=== PATIENT | female | born 1960 | race Caucasian/White ===

== ENCOUNTER → 2024-07-15 | Outpatient (CLI) | payer OTHER, SELFPAY ==
--- NOTE | 2024-07-15 | XR_ITS ---
Examination: Breast ultrasound, unilateral, right complete Date and time of exam: July 07, 2024 0736 hrs. Indications: Right breast discharge beginning one month ago, family history breast cancer Technique: Real-time frazier scale ultrasonographic imaging performed right breast including all 4 quadrants as well as nipple retroareolar and axillary region. Findings: No cystic or solid mass 3.1 cm right axillary lymph node Impression: BI-RADS Category 0: Incomplete: Need additional imaging evaluation Recommend diagnostic mammography follow-up
--- NOTE | 2024-07-15 | XR_ITS ---
Examination: Skull series 4 views Technique: Mina right lateral knee left lateral skull series 4 views Exam date and time: July 21, 2024 0818 hrs. Indications: Palpable mass right frontal bone 3 months Findings: Radiolucent lesion with sclerotic borders in the right frontal bone is depicted, measuring 12 mm No cranial vault fracture Normal sella turcica Impression: Recommend CT brain without contrast follow-up including bone density settings to assess sclerotic 12 mm right frontal bone lesion
[2024-07-15 09:47] LABS: Follicle Stimulating Hormone 63.04 mIU/mL (See Note)
[2024-07-15 09:50] LABS: Free T4 (Free Thyroxine) 1.24 ng/dL (0.89-1.76); Thyroid Stimulating Hormone 3.25 uIU/mL (0.55-4.78)
[2024-07-19 06:38] LABS: Sex Hormone Binding Globulin* 73 nmol/L (14-73)
== END | disposition home or self-care (01) ==
LOC: CDIM 06:57
PROVIDERS: PCP Nurse Practitioner Family; Referring Provider Nurse Practitioner Family; Visit Provider Nurse Practitioner Family
DX: R92.8 Other abnormal and inconclusive findings on diagnostic imaging of breast (principal); M89.8X8 Other specified disorders of bone, other site; R68.89 Other general symptoms and signs
CPT/HCPCS: 36415; 70260; 76641; 82533; 82670; 82672; 83001; 83002; 84144; 84270; 84439; 84443

== ENCOUNTER → 2024-07-19 | Outpatient (CLI) | payer OTHER, SELFPAY ==
--- NOTE | 2024-07-19 12:32 | XR_ITS ---
Examination: Diagnostic digital mammography, bilateral Computer aided detection 3-D breast Tomosynthesis, bilateral Date and time of exam: 07/19/2024, 12:35 PM Comparisons: February 2018 through September 2023 Indications:Right body nipple discharge Technique: Nonmagnified MLO, CC views of the breasts to been obtained, reconstructed from 3-D Tomosynthesis images. R2 computer aided detection program utilized for evaluation of suspicious masses and/or abnormal calcifications. 3-D Tomosynthesis images obtained. Findings: There are scattered areas of fibroglandular density. Dilated right outer breast/retroareolar ducts. Otherwise, no evidence of abnormal masses or suspicious calcifications. Impression: Dilated right outer breast/retroareolar ducts. Further evaluation with spot compression views of the right retroareolar and outer breast and ultrasound evaluation of the right breast. BI-RADS category 0: Incomplete assessment; need additional imaging evaluation
== END | disposition home or self-care (01) ==
LOC: CDIM 12:09
PROVIDERS: Referring Provider Nurse Practitioner Family; Visit Provider Nurse Practitioner Family
DX: R92.8 Other abnormal and inconclusive findings on diagnostic imaging of breast (principal)
CPT/HCPCS: 77062; 77066; G0279

== ENCOUNTER → 2024-07-25 | Outpatient (CLI) | payer OTHER, SELFPAY ==
--- NOTE | 2024-07-25 13:54 | XR_ITS ---
Examination: CT brain head without contrast. 2-D sagittal coronal reconstructions Date and time of exam:July 25, 2024 1402 hours INDICATIONS: Right frontal bone lesion 12 mm on skull series July 15, 2024 CTDI: vol (mGy):48.3 DLP: (mGycm):972 Technique: Multiple CT axial sections of the brain have been obtained, 5 mm slice thickness. Contrast has not been administered. 2-D sagittal, coronal reconstructions have been obtained Low dose protocols were performed. One or more of the following dose reduction techniques were used; automated exposure control, adjustment of the mA and/or KV according to patient size, use of iterative reconstruction technique. Findings: No significant ventricular enlargement. Intra-axial or extra-axial hemorrhage density is not seen. No mass effect or midline shift Basal cisterns are not remarkable. Fourth ventricle is midline. Cranial vault intact. Probable pacchionian granulation right frontal bone Impression: Negative for acute hemorrhage, mass effect or midline shift
== END | disposition home or self-care (01) ==
LOC: CCTX 13:43
PROVIDERS: PCP Nurse Practitioner Family; Referring Provider Nurse Practitioner Family; Visit Provider Nurse Practitioner Family
DX: R22.0 Localized swelling, mass and lump, head (principal)
CPT/HCPCS: 70450

== ENCOUNTER → 2024-08-02 | Outpatient (CLI) | payer OTHER, SELFPAY ==
--- NOTE | 2024-08-02 14:10 | XR_ITS ---
Examination: Breast ultrasound, unilateral, right complete Date and time of exam: August 02, 2024 1425 hours INDICATIONS: Burning sensation right breast 18 days with nipple discharge, family history breast cancer Technique: Real-time frazier scale ultrasonographic imaging performed right breast including all 4 quadrants as well as nipple retroareolar and axillary region. Findings: Sonographic images right breast 10:00 cyst 2 x 3 mm No solid nodules Dilated ducts retroareolar region right breast IMPRESSION: BI-RADS Category 2: Benign findings
--- NOTE | 2024-08-02 14:31 | XR_ITS ---
Examination: Diagnostic digital mammography, unilateral, right Computer aided detection 3-D breast Tomosynthesis, unilateral Date and time of exam: August 02, 2024 1445 hours INDICATIONS: Mammogram July 19, 2024 dilated right outer breast retroareolar ducts Technique: Nonmagnified MLO, CC views of the right breast have been obtained, reconstructed from 3-D Tomosynthesis images. R2 computer aided detection program utilized for evaluation of suspicious masses and/or abnormal calcifications. 3-D Tomosynthesis images obtained. Findings: Scattered areas of fibroglandular density. Dilated retroareolar ducts Impression: BI-RADS category 2: Benign findings Recommend yearly follow-up mammography
== END | disposition home or self-care (01) ==
PROVIDERS: PCP Nurse Practitioner Family; Referring Provider Nurse Practitioner Family; Visit Provider Nurse Practitioner Family
DX: R92.321 Mammographic fibroglandular density, right breast (principal); Z80.3 Family history of malignant neoplasm of breast
CPT/HCPCS: 76641; 77061; 77065; G0279

== ENCOUNTER 2024-08-06 09:40 | Emergency (ER) | payer OTHER, SELFPAY ==
[2024-08-06 09:49] VITALS: BP 141/84; PULSE 70; RESP 16; TEMP 36.7; O2SAT 97; BMI 35.0
--- NOTE | 2024-08-06 10:02 | EDNOTE_ITS ---
ED Skin Abcess FB-RME/HPI General Chief complaint: Skin/Abscess/Foreign Body Stated complaint: BURNING IN RIGHT BREAST X 1 WK AFTER MAMMOGRAM Time Seen by Provider: 08/06/24 09:48 Source: patient Arrival date/time: 08/06/24 09:40 63-year-old female with normal medical history presents to the emergency room with a chief complaint of burning and discharge in her right breast x 1 week. Patient states she recently had a mammogram. Mode of arrival: ambulatory Limitations: no limitations Related Data Home Medications ?Medication ?Instructions ?Recorded ?Confirmed omeprazole 20 mg capsule,delayed 20 mg PO QDAY ##0 07/2206/03/21 release naproxen sodium 220 mg tablet 220 mg PO BID PRN Pain 0 08/17/20 06/03/21 (Aleve) Previous Rx's ?Medication ?Instructions ?Recorded tramadol 50 mg tablet 50 mg PO Q6H PRN pain #20 ta bs 10/27/22 amoxicillin 875 mg-potassium 1 tab PO BID 7 days #14 t abs 08/06/24 clavulanate 125 mg tablet Allergies Allergy/AdvReac Type Severity Reaction Status Date / Time No Known Allergies Allergy Verified 08/06/24 09:44 Review of Systems Review of Systems Systems Reviewed: All systems reviewed, normal except as documented Constitutional Constitutional: Reports system reviewed and no additional complaints, except as documented, Denies fatigue, Denies fever(s), Denies headache(s) and Denies weakness Eyes Eyes: Reports system reviewed and no additional complaints, except as documented, Denies blurry vision and Denies change in vision ENT Ears, Nose, Mouth, and Throat: Reports system reviewed and no additional complaints, except as documented, Denies otalgia, Denies headache(s), Denies nasal congestion, Denies throat swelling and Denies vertigo Cardiovascular Cardiovascular: Reports system reviewed and no additional complaints, except as documented, Denies chest pain, Denies dyspnea and Denies dyspnea on exertion Respiratory Respiratory: Reports system reviewed and no additional complaints, except as documented, Denies chest congestion, Denies cough, Denies dyspnea, Denies dyspnea on exertion and Denies wheezing Gastrointestinal Gastrointestinal: Reports system reviewed and no additional complaints, except as documented, Denies abdominal pain, Denies cramping, Denies nausea and Denies vomiting Genitourinary Genitourinary: Reports system reviewed and no additional complaints, except as documented and Reports nipple discharge Musculoskeletal Musculoskeletal: Reports system reviewed and no additional complaints, except as documented and Denies back pain Integumentary/Breasts Skin/Breast: Reports system reviewed and no additional complaints, except as documented, Reports erythema, Denies wounds, Reports breast skin changes and Reports nipple discharge Neurologic Neurologic: Reports system reviewed and no additional complaints, except as documented, Denies confusion, Denies headache(s), Denies lack of coordination, Denies vertigo and Denies weakness Psychiatric Psychiatric: Reports system reviewed and no additional complaints, except as documented, Denies anxiety, Denies confusion, Denies depression, Denies paranoia, Denies suicidal ideation and Denies tactile hallucinations Endocrine Endocrine: Reports system reviewed and no additional complaints, except as documented and Denies fatigue Hematologic/Lymphatic Hematologic/Lymphatic: Reports system reviewed and no additional complaints, except as documented and Denies lymphadenopathy Allergic/Immunologic Allergic/Immunologic: Reports system reviewed and no additional complaints, except as documented, Denies throat swelling, Denies urticaria and Denies wheezing ED Exam General Limitations: Present no limitations General appearance: Present alert and in no apparent distress Head Head exam: Present atraumatic Eye Eye exam: Present normal appearance, PERRL and EOMI ENT ENT exam: Present normal exam, normal oropharynx and mucous membranes moist Neck Neck exam: Present normal inspection, full ROM and trachea midline Chest Chest inspection: Present normal inspection and symmetric chest wall rise Expanded Chest Exam Breast: right: erythema, tenderness and nipple discharge Respiratory Respiratory exam: Present normal lung sounds bilaterally Cardiovascular Cardiovascular exam: Present regular rate, normal rhythm and normal heart sounds Abdominal Exam Abdominal exam: Present soft and normal bowel sounds Extremities Exam Extremities exam: Present normal inspection and full ROM Back Exam Back exam: Present normal inspection and full ROM Neurological Exam Neurological exam: Present alert, oriented X3 and CN II-XII intact Psychiatric Psychiatric exam: Present normal affect and normal mood Skin Skin exam: Present warm, dry, intact and normal color Course Quality Measures none Vital Signs Vital signs: Vital Signs Temperature 98.0 F 08/06/24 09:49 Pulse Rate 70 08/06/24 09:49 Respiratory Rate 16 08/06/24 09:49 Blood Pressure 141/84 H 08/06/24 09:49 Pulse Oximetry (%) 97 08/06/24 09:49 Oxygen Delivery Method Room Air 08/06/24 09:49 O2 saturation 97% within normal limits Skin / Abscess / Foreign Body MDM Narrative MDM Narrative:: 63-year-old female with normal medical history presents to the emergency room with a chief complaint of burning and discharge in her right breast x 1 week. Patient states she recently had a mammogram. Patient is hemodynamically stable and in no apparent distress. She is afebrile not tachycardic and not tachypneic Physical examination shows swelling and tenderness to the right breast. There is some discharge coming out of the right nipple. Patient recently had a mammogram done a week ago that showed benign findings. Patient had ultrasound as well that showed a small benign cyst. All copies of her recent imaging were given to her patient was discharged with antibiotics for mastitis Patient was discharged and educated to follow-up with primary care provider in the next 24 to 48 hours and return to the emergency room for any evidence of worsening signs or symptoms Patient data External records reviewed:: [facility] previous records Clinical information provided by:: patient Social determinants that could affect healthcare access:: none Patient has the following chronic illnesses:: No chronic illness How is presenting disease/condition affected by chronic disease/condition?: no chronic disease Evaluation data The following diagnostics were reviewed and interpreted by me:: lab results and radiology exam(s) Lab and/or radiology exams considered but not ordered:: Labs and radiology exams considered and ordered Interpretation Summary: N/A Medications / Prescriptions Medications or Prescriptions considered but not ordered:: Rx given Medication administrations:: Rx given Consultations Consultation(s) initiated? (list below): No Diagnosis Skin/Abscess Differential Diagnosis: abscess of skin or subcutaneous tissue, cellulitis and other (Mastitis) Most likely diagnosis given after review of the tests above:: Mastitis Admission Indicated Admission indicated?: not indicated Admission Request Was there a request for admission?: No Disposition Plan Disposition Plan: Discharge Discharge Attestation Discharge Attestation: The patient and all family members were given an opportunity to ask questions and understood the discharge instructions. Discharge instructions specifically effects, indications for sooner follow up or return to the emergency department, and the expected course of current diagnosis. Patient condition: Stable Discharge Plan Plan Patient Disposition: HOME (Self Care) Disposition Comment: Stable Prescriptions/Referrals Prescriptions/Med Rec: New amoxicillin-pot clavulanate 875-125 mg tablet 1 tab PO BID 7 Days Qty: 14 0RF No Action omeprazole 20 MG capsule,delayed release(DR/EC) 20 mg PO QDAY Qty: 0 naproxen sodium [Aleve] 220 mg Tablet 220 mg PO BID PRN (Reason: Pain) tramadol 50 mg tablet 50 mg PO Q6H PRN (Reason: pain) Qty: 20 0RF Problem List Clinical Impression: Mastitis Patient/Caregiver Discharge Instructions Education Materials: ED Mastitis Additional Instructions: Please follow-up with your primary care provider in the next 24 to 48 hours. I attached a copy of your mammogram results. The radiologist recommends a yearly follow-up. Antibiotics are sent to your pharmacy please pick them up and take them as indicated. For any evidence of worsening signs or symptoms return to the emergency room immediately Print Language: Welsh Stand Alone Forms: Viviana Award Info., Patient Portal Info Letter PA/[employer] Supervising Physician PA/[employer] Supervising Physician: Dr. Van
--- NOTE | 2024-08-06 11:49 | PC.NURSE ---
Addendum entered by Ally Ross RN 08/06/24 12:10: RN CALLED PT FROM [facility] AGAIN; NO ANSWER AT THIS TIME. Original Note: RN CALLED PT FROM ED [facility]; NO ANSWER AT THIS TIME.
== END 2024-08-06 12:13 | disposition home or self-care (01) ==
LOC: SERX 10:11
PROVIDERS: Emergency Provider Emergency Medicine; PCP Nurse Practitioner Family
DX: N61.0 Mastitis without abscess (principal)
CPT/HCPCS: 99281

== ENCOUNTER → 2024-09-06 | Outpatient (CLI) | payer OTHER, SELFPAY ==
--- NOTE | 2024-09-06 14:04 | XR_ITS ---
Examination: Breast ultrasound, unilateral, right Date and time of exam: September 06, 2024 1422 hours INDICATIONS: Bloody nipple discharge 3 months Technique: Real-time frazier scale ultrasonographic imaging performed right breast including all 4 quadrants as well as nipple retroareolar and axillary region. Findings: 10:00 cyst 2 x 3 mm No solid nodules Dilated ducts in the retroareolar region with internal echoes IMPRESSION: Dilated ducts retroareolar with internal echoes, recommend ductogram follow-up
== END | disposition home or self-care (01) ==
LOC: CDIM 13:54
PROVIDERS: PCP Nurse Practitioner Family; Referring Provider Nurse Practitioner Family; Visit Provider Nurse Practitioner Family
DX: N64.89 Other specified disorders of breast (principal)
CPT/HCPCS: 76641

== ENCOUNTER → 2024-10-08 | Outpatient (CLI) | payer OTHER, SELFPAY ==
--- NOTE | 2024-10-08 09:00 | XR_ITS ---
Examination: Right breast ductogram Right CC view mammogram x2 Date and time: October 08, 2024 0939 hours INDICATIONS: Bloody discharge episodes beginning 4 months ago TECHNIQUE AND FINDINGS: Informed consent provided. Timeout performed. Skin prepped over the nipple region right breast Cannulation of the duct in the breast with dilated ducts retroareolar filling No filling defects in the duct noted No breast mass IMPRESSION: BI-RADS Category 2: Benign findings
== END | disposition home or self-care (01) ==
LOC: CDIM 08:00
PROVIDERS: Referring Provider Nurse Practitioner Family; Visit Provider Nurse Practitioner Family
DX: N61.1 Abscess of the breast and nipple (principal)
CPT/HCPCS: 77053; Q9967

== ENCOUNTER 2024-11-19 18:42 | Emergency (ER) | payer OTHER, SELFPAY ==
[2024-11-19 18:44] VITALS: BMI 34.3
[2024-11-19 19:10] VITALS: BP 146/82; PULSE 75; RESP 18; TEMP 36.8; O2SAT 97
--- NOTE | 2024-11-19 19:37 | XR_ITS ---
Examination: Duplex scan of the lower extremity, unilateral right the Date and time of exam: November 20, 1999 2510 0 6:00 PM INDICATIONS: Right leg pain beginning 4 days ago Technique: Duplex scan of the extremity veins using B-mode/grayscale imaging and Doppler spectral analysis and color flow Attention is directed to internal echogenicity, compression and augmentation involving these veins, color flow assessment, spectral analysis Findings: Major deep venous structures in the extremity demonstrate normal course and caliber. There is no evidence of deep vein thrombosis. Normal color flow and spectral analysis Impression: Negative for DVT..
--- NOTE | 2024-11-19 19:37 | XR_ITS ---
Examination: Transvaginal ultrasound of the pelvis, complete Technique: Transvaginal sonographic images pelvis performed using frazier scale imaging Exam date and time: November 19, 2024 10:14 PM INDICATIONS: Vaginal bleeding and cramping beginning 4 days ago FINDINGS: Uterus 8.4 cm endometrial stripe 1.2 cm Moderate fluid in the endometrium 13 x 5 x 8 mm Multiple calcifications in the endometrium Right ovary 2.2 cm arterial flow Appropriate obscured by bowel gas IMPRESSION: No discrete uterine mass Endometrial stripe is abnormally thickened measuring up to 13 mm, differential would include endometrial hyperplasia, early malignant neoplasm of the endometrium Recommend elective MRI pelvis follow-up pre and postcontrast
--- NOTE | 2024-11-19 19:38 | EDNOTE_ITS ---
ED Extremity Problem RME/HPI General Chief complaint: Extremity Injury, Lower Stated complaint: R) LEG PAIN 12/15, VAGINAL BLEEDING Time Seen by Provider: 11/19/24 19:37 Arrival date/time: 11/19/24 18:42 64F with history of sciatica presents to ED with RLE pain w/o fall/trauma. Patient states this doesn't feel like her normal sciatica pain. Separately, patient has had some pelvic pain and vaginal bleeding. She knows she has a thickened endometrium, but doesn't know why. She's had biopsies before of it. Limitations: no limitations Related Data Home Medications ?Medication ?Instructions ?Recorded ?Confirmed omeprazole 20 mg capsule,delayed 20 mg PO QDAY ##0 07/2206/03/21 release naproxen sodium 220 mg tablet 220 mg PO BID PRN Pain 0 08/17/20 06/03/21 (Aleve) Previous Rx's ?Medication ?Instructions ?Recorded tramadol 50 mg tablet 50 mg PO Q6H PRN pain #20 ta bs 10/27/22 Allergies Allergy/AdvReac Type Severity Reaction Status Date / Time No Known Allergies Allergy Verified 11/19/24 18:46 Review of Systems Review of Systems Systems Reviewed: All systems reviewed, normal except as documented Constitutional Constitutional: Reports system reviewed and no additional complaints, except as documented, Denies fever(s) and Denies headache(s) ENT Ears, Nose, Mouth, and Throat: Denies disequilibrium and Denies headache(s) Cardiovascular Cardiovascular: Reports system reviewed and no additional complaints, except as documented, Denies chest pain and Denies dyspnea Respiratory Respiratory: Reports system reviewed and no additional complaints, except as documented, Denies cough and Denies dyspnea Gastrointestinal Gastrointestinal: Reports system reviewed and no additional complaints, except as documented, Denies abdominal pain, Denies nausea and Denies vomiting Genitourinary Genitourinary: Reports as per HPI and Reports abnormal vaginal bleeding Musculoskeletal Musculoskeletal: Reports as per HPI, Reports arthralgias and Reports radiating pain into limb Neurologic Neurologic: Reports system reviewed and no additional complaints, except as documented, Denies confusion, Denies disequilibrium and Denies headache(s) Psychiatric Psychiatric: Denies confusion Past Medical History Past Medical History NEUROLOGIC: Negative Neurological Disorders or Seizures CARDIAC: Positive Cardiac Disorders and Heart Murmur; Negative Congestive Heart Failure RESPIRATORY: Positive Sleep Apnea; Negative Chronic Obstructive Pulmonary Disease (COPD) or Asthma GASTROINTESTINAL: Positive Gastrointestinal Disorders, Gall Bladder Disease and Gastroesophageal Reflux Disease GENITOURINARY: Positive Genitourinary Disorders and Kidney Stones (kidney stones removal); Negative Renal Disease REPRODUCTIVE: Positive Previous Pregnancies (x3) MUSCULOSKELETAL: Positive Musculoskeletal Disorders and Arthritis ENT: Negative Blind ENDOCRINE: Negative Diabetes Mellitus Type 1 or Diabetes Mellitus Type 2 HEMATOLOGIC: Negative Blood Disorders or Sickle Cell Disease OTHER HISTORY: Positive Shingles (child); Negative Autoimmune Disease, Blood Transfusions, Blood Transfusion Reaction, Anesthesia Reactions, Chicken Pox, Measles, Mumps or Cancer Family History FAMILY HISTORY: Positive Family Respiratory Disorders (mother, father and brother-COPD, father-HTN), Family Cardiac Disorders (mother-CHF), Family Cancer (mother, father and brother-lung cancer, father-bladder cancer) and Family Surgery (father); Negative Family Psychiatric Problems, Family Gastrointestinal Problems or Family Anesthesia Reaction Surgical History SURGICAL: Positive Tubal Ligation and Section Social History SMOKING STATUS: Former smoker ED Exam General Limitations: Present no limitations General appearance: Present alert and in no apparent distress Head Head exam: Present atraumatic Eye Eye exam: Present normal appearance, PERRL and EOMI ENT ENT exam: Present normal exam, normal oropharynx and mucous membranes moist Neck Neck exam: Present normal inspection, full ROM and trachea midline Chest Chest inspection: Present normal inspection and symmetric chest wall rise Respiratory Respiratory exam: Present normal lung sounds bilaterally Cardiovascular Cardiovascular exam: Present regular rate, normal rhythm and normal heart sounds Abdominal Exam Abdominal exam: Present soft and normal bowel sounds Extremities Exam Extremities exam: Present normal inspection and full ROM Back Exam Back exam: Present normal inspection and full ROM Neurological Exam Neurological exam: Present alert, oriented X3 and CN II-XII intact Psychiatric Psychiatric exam: Present normal affect and normal mood Skin Skin exam: Present warm, dry, intact and normal color Course Quality Measures none Orders Category Date Time Status US transvaginal Stat Exams 11/19/24 19:37 Completed US venous doppler LE RT Stat Exams 11/19/24 19:37 Completed Ketorolac Inj [Toradol Inj] Med 11/19/24 23:08 Discontinued 60 mg IM X1 ONE Vital Signs Vital signs: Vital Signs Temperature 98.2 F 11/19/24 19:10 Pulse Rate 75 11/19/24 19:10 Respiratory Rate 18 11/19/24 19:10 Blood Pressure 146/82 H 11/19/24 19:10 Pulse Oximetry (%) 97 11/19/24 19:10 Oxygen Delivery Method Room Air 11/19/24 19:10 O2 at 97% on RA and WNLs Extremity Problem MDM Narrative MDM Narrative:: 64F with history of sciatica presents to ED with RLE pain w/o fall/trauma. Patient states this doesn't feel like her normal sciatica pain. Separately, patient has had some pelvic pain and vaginal bleeding. She knows she has a thickened endometrium, but doesn't know why. She's had biopsies before of it. Physical exam no gross RLE swelling. Gait normal. Patient is afebrile, calm, and alert. US RLE no DVT. US pelvic thickened endometrium. Meds and memorial counselor given. Patient data External records reviewed:: [facility] previous records Clinical information provided by:: patient Social determinants that could affect healthcare access:: none Patient has the following chronic illnesses:: none How is presenting disease/condition affected by chronic disease/condition?: no chronic disease Evaluation data The following diagnostics were reviewed and interpreted by me:: radiology exam(s) Lab and/or radiology exams considered but not ordered:: ordered Interpretation Summary: above Medications / Prescriptions Medications or Prescriptions considered but not ordered:: ordered Medication administrations:: Medication Administration History Discontinued Medications Ketorolac Tromethamine (Ketorolac Inj 60 Mg/2 Ml Vial) 60 mg IM X1 ONE Stop: 11/19/24 23:09 Last Admin: 11/19/24 23:22 Dose: 60 mg Documented By: CVL above Consultations Consultation(s) initiated? (list below): No Diagnosis Extremity Problem Differential Diagnosis: herpes zoster, gout, cellulitis, superficial thrombophlebitis, deep venous thrombosis of upper extremity, lower extremity edema, deep vein thrombosis of lower extremity and other (vaginal bleeding, sciatica and thickened endometrium) Most likely diagnosis given after review of the tests above:: sciatica and thickened endometrium Admission Indicated Admission indicated?: not indicated Admission Request Was there a request for admission?: No Disposition Plan Disposition Plan: Discharge Discharge Attestation Discharge Attestation: The patient and all family members were given an opportunity to ask questions and understood the discharge instructions. Discharge instructions specifically effects, indications for sooner follow up or return to the emergency department, and the expected course of current diagnosis. Patient condition: Stable Discharge Plan Plan Patient Disposition: HOME (Self Care) Discharge Disposition comment: Stable Prescriptions/Referrals Prescriptions/Med Rec: No Action omeprazole 20 MG capsule,delayed release(DR/EC) 20 mg PO QDAY Qty: 0 naproxen sodium [Aleve] 220 mg Tablet 220 mg PO BID PRN (Reason: Pain) tramadol 50 mg tablet 50 mg PO Q6H PRN (Reason: pain) Qty: 20 0RF Referrals: No Primary/Family,Physician [Primary Care Provider] - In 1 week Problem List Clinical Impression: Sciatica, Endometrial thickening on ultrasound Patient/Caregiver Discharge Instructions Education Materials: ED Sciatica Additional Instructions: Please follow-up with PCP/OBYGN within 24-48 hours and return immediately if s ymptoms worsen. If problem persists, recommend outpatient PT and/or MRI follow-up. In the meantime, rest, use ice/heat, and/or compression. Print Language: Portuguese Stand Alone Forms: Patient Portal Info Letter PA/ARELI Supervising Physician MARISA/ARELI Supervising Physician: Dr. Ott
[2024-11-19] MEDS: KETOROLAC INJ 60 MG/2 ML VIAL IM (23:22)
[2024-11-19 23:44] VITALS: RESP 18
== END 2024-11-19 23:44 | disposition home or self-care (01) ==
PROVIDERS: Emergency Provider Emergency Medicine
DX: M54.31 Sciatica, right side (principal); R93.89 Abnormal findings on diagnostic imaging of other specified body structures; N93.9 Abnormal uterine and vaginal bleeding, unspecified
CPT/HCPCS: 76830; 93971; 96372; 99283; J1885

== ENCOUNTER → 2024-11-25 | Outpatient (CLI) | payer OTHER, SELFPAY ==
--- NOTE | 2024-11-25 13:58 | XR_ITS ---
Examination: Lumbar spine 3 views Technique one AP lateral coned lateral lower lumbar spine 3 views Date and time: November 25, 2024 1413 hours INDICATIONS: Low back pain several years. FINDINGS: Severe osteopenia Prominent anterior osteophytes L2-L3 Diffuse [id number] lumbar degenerative disc disease most severe L5-S1 No lumbar fracture IMPRESSION: Diffuse [id number] lumbar degenerative disc disease most severe L5-S1
== END | disposition home or self-care (01) ==
PROVIDERS: PCP Nurse Practitioner Family; Referring Provider Nurse Practitioner Family; Visit Provider Nurse Practitioner Family
DX: M51.360 Other intervertebral disc degeneration, lumbar region with discogenic back pain only (principal); M51.370 Other intervertebral disc degeneration, lumbosacral region with discogenic back pain only
CPT/HCPCS: 72100

== ENCOUNTER → 2025-01-03 | Outpatient (CLI) | payer OTHER, SELFPAY ==
--- NOTE | 2025-01-03 11:30 | XR_ITS ---
Examination: Ultrasound soft tissue extremity right groin TECHNIQUE: Grayscale sonographic images soft tissue right groin Date and time: January 03, 2025, 1117 hours INDICATIONS: Right groin pain beginning 6 months ago FINDINGS: Multiple lymph nodes in the right groin 10 x 6 mm, 13 x 5 mm, 12 x 6 mm, 8 x 5 mm IMPRESSION: Nonspecific groin lymphadenopathy
== END | disposition home or self-care (01) ==
LOC: CDIM 11:07
PROVIDERS: PCP Family Medicine; Referring Provider Nurse Practitioner Family; Visit Provider Nurse Practitioner Family
DX: R59.1 Generalized enlarged lymph nodes (principal)
CPT/HCPCS: 76882

== ENCOUNTER → 2025-02-11 | Outpatient (CLI) | payer OTHER, SELFPAY ==
--- NOTE | 2025-02-11 14:06 | XR_ITS ---
Examination: CT pelvis right hip, without contrast. 2-D sagittal reconstructions. 2-D coronal reconstructions. 3-D reconstructions. Date and time of exam: February 11, 2025, 1436 hours INDICATIONS: Right hip and groin pain beginning 1 year ago CTDI: vol (mGy): 13.8 DLP: (mGycm): 450 Technique: Multiple 1.25 mm axial sections of the pelvis right hip have been obtained. 2-D sagittal and coronal reconstructions have been obtained. 3-D reconstructions have been obtained. Low dose protocols were performed. One or more of the following dose reduction techniques were used; automated exposure control, adjustment of the mA and/or KV according to patient size, use of iterative reconstruction technique. Findings: Normal appendix. 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
== END | disposition home or self-care (01) ==
LOC: CCTX 13:50
PROVIDERS: PCP Nurse Practitioner Family; Referring Provider Nurse Practitioner Family; Visit Provider Nurse Practitioner Family
DX: M25.852 Other specified joint disorders, left hip (principal); M25.851 Other specified joint disorders, right hip
CPT/HCPCS: 73700

== ENCOUNTER → 2025-02-20 | Outpatient (CLI) | payer OTHER, SELFPAY ==
[2025-02-20 17:37] LABS: Anion Gap 7 (7-16); BUN/Creatinine Ratio 21 Ratio (12-20); Blood Urea Nitrogen 17 mg/dL (9-23); Calcium 9.1 mg/dL (8.3-10.6); Carbon Dioxide 29.2 mMol/L (20.0-31.0); Chloride 108 mMol/L (98-107); Creatinine (Component) 0.8 mg/dL (0.6-1.3); Glucose 128 mg/dL (74-106); Osmolality,Calculated 290 (275-295); Potassium 4.7 mMol/L (3.4-5.1); Sodium 144 mMol/L (136-145); eGFR > 60 See Note
== END | disposition home or self-care (01) ==
LOC: COPL 16:14
PROVIDERS: PCP Family Medicine; Referring Provider Nurse Practitioner Family; Visit Provider Nurse Practitioner Family
DX: M89.751 Major osseous defect, right pelvic region and thigh (principal)
CPT/HCPCS: 36415; 80048

== ENCOUNTER → 2025-02-21 | Outpatient (CLI) | payer OTHER, SELFPAY ==
--- NOTE | 2025-02-21 13:30 | XR_ITS ---
Examination: MRI pelvis with intravenous contrast. MRI pelvis without intravenous contrast. Date and time of exam: Abraham ESQUIVEL, 2024, 1337 hours INDICATIONS: Right pelvic osteolytic lesions 11 mm 10 mm anterior right acetabulum Technique: Multiple axial, sagittal and coronal sections of the pelvis obtained. Transverse images, TR 6020, TE 107. T1 weighted transverse images, TR 582, TE 9.5. T2-weighted sagittal images, TR 4000, TE 105. T2-weighted sagittal images, TR 4000, TE 5. Coronal images, TR 4210, TE 107. Axial and coronal images are obtained post 18 cc intravenous injection, gadolinium. Findings: Osteolytic areas in the right anterior acetabulum, in aggregate measure 20 x 10 mm These areas show irregular abnormal enhancement on the postcontrast studies Also abnormal enhancing lesion in the left femoral head 12 mm and enhancement involving the upper margin L5 No pelvic lymphadenopathy No free fluid in the pelvis Anteverted uterus with no uterine mass IMPRESSION: Osteolytic enhancing lesions in the pelvis and left hip Recommend whole-body bone scan follow-up
== END | disposition home or self-care (01) ==
LOC: SMRI 12:54
PROVIDERS: PCP Nurse Practitioner Family; Referring Provider Nurse Practitioner Family; Visit Provider Nurse Practitioner Family
DX: M89.59 Osteolysis, multiple sites (principal)
CPT/HCPCS: 72197; A9577

== ENCOUNTER → 2025-03-04 | Outpatient (CLI) | payer OTHER, SELFPAY ==
[2025-03-04 16:44] LABS: Parathyroid Hormone Intact 23.4 pg/ml (18.5-88.0)
[2025-03-04 16:53] LABS: Alanine Aminotransferase 14 U/L (10-49); Albumin, Serum 4.5 gm/dL (3.4-4.8); Albumin/Globulin Ratio 2.4 (1.2-2.2); Alkaline Phosphatase 155 U/L (46-116); Anion Gap 10 (7-16); Aspartate Amino Transferase 33 U/L (0-34); BUN/Creatinine Ratio 21 Ratio (12-20); Bilirubin,Total 0.5 mg/dL (0.3-1.2); Blood Urea Nitrogen 19 mg/dL (9-23); Calcium 9.5 mg/dL (8.3-10.6); Calcium (Corrected) 9.5 mg/dL (8.5-10.1); Carbon Dioxide 27.0 mMol/L (20.0-31.0); Chloride 107 mMol/L (98-107); Creatinine (Component) 0.9 mg/dL (0.6-1.3); Globulin 1.9 gm/dL (2.3-3.5); Glucose 111 mg/dL (74-106); Osmolality,Calculated 290 (275-295); Phosphorous 2.8 mg/dL (2.4-5.1); Potassium 4.4 mMol/L (3.4-5.1); Sodium 144 mMol/L (136-145); Total Protein 6.4 gm/dL (5.7-8.2); Uric Acid 6.1 mg/dL (3.1-7.8); eGFR > 60 See Note
== END | disposition home or self-care (01) ==
LOC: COPL 15:17
PROVIDERS: PCP Student in an Organized Health Care Education/Training Program; Referring Provider Student in an Organized Health Care Education/Training Program; Visit Provider Student in an Organized Health Care Education/Training Program
DX: M89.50 Osteolysis, unspecified site (principal)
CPT/HCPCS: 36415; 80053; 83970; 84100; 84550

== ENCOUNTER → 2025-03-11 | Outpatient (CLI) | payer OTHER, SELFPAY ==
--- NOTE | 2025-03-11 12:30 | XR_ITS ---
NUCLEAR MEDICINE WHOLE BODY BONE SCAN Date and time of exam: 03/11/2025 at 8:17 a.m. HISTORY: Osteolysis, unspecified site. History of right hip pain and hurting after fall/trauma 2 months ago COMPARISON: Pelvic MRI 02/21/2025, right hip CT 02/11/2025. CT head 07/25/2024. TECHNIQUE: Following the intravenous administration of 22 mCi of 99m Tc MDP, images of the whole body in the anterior and posterior projection were obtained. FINDINGS: This exam is directly compared to the above stated comparison studies. Intense focal activity localizes to the right anterior acetabulum, correlating with region a of mixed cystic/lytic lesions and surrounding sclerosis and edema on prior imaging. There is relatively less intense activity in the region of the left femoral head, correlating with lytic lesion with marrow edema on prior imaging as well. There is asymmetrically increased activity at the left humeral head on the frontal view. This is nonspecific and could be degenerative related or due to underlying lesions as well. There is a mild region of degenerative-type uptake at the left knee anteriorly and posteriorly. Additional radiotracer uptake noted at the hindfoot regions, nonspecific but may be degenerative related. Tracer uptake at the wrists is also likely degenerative related. No suspicious areas of increased or decreased radiotracer accumulation in the spine, calvarium and ribs. Physiological urinary tract activity visualized. IMPRESSION: Intense radiotracer uptake identified in the right anterior acetabulum and to a lesser degree at the left femoral head, correlating with cystic/lytic lesions and marrow edema on the prior imaging, in addition to sclerosis at the right acetabulum on prior CT. At the right hip, this could represent posttraumatic change and/or stress fracture/reaction with secondary osteoarthritis involving the anterior column of the right acetabulum. At the posterior left femoral head, activity is most likely degenerative in nature, including fibrocystic change with surrounding reactive edema. Other foci of activity as described are most likely degenerative related, including the intense focus of activity at the left humeral head. I would recommend further evaluation of the left shoulder with CT and/or MRI. This report was generated using speech recognition software.
== END | disposition home or self-care (01) ==
LOC: SNUC 08:57
PROVIDERS: PCP Nurse Practitioner Family; Referring Provider Student in an Organized Health Care Education/Training Program; Visit Provider Student in an Organized Health Care Education/Training Program
DX: R93.7 Abnormal findings on diagnostic imaging of other parts of musculoskeletal system (principal)
CPT/HCPCS: 78306; A9503

== ENCOUNTER → 2025-03-24 | Outpatient (CLI) | payer OTHER, SELFPAY ==
[2025-03-24 16:39] LABS: Vitamin D 25 Hydroxy Total 33.6 ng/mL (7.3-40.2)
== END | disposition home or self-care (01) ==
LOC: COPL 15:15
PROVIDERS: PCP Family Medicine; Referring Provider Student in an Organized Health Care Education/Training Program; Visit Provider Student in an Organized Health Care Education/Training Program
DX: M89.712 Major osseous defect, left shoulder region (principal); M85.89 Other specified disorders of bone density and structure, multiple sites
CPT/HCPCS: 36415; 82306

== ENCOUNTER → 2025-04-09 | Outpatient (CLI) | payer OTHER, SELFPAY ==
--- NOTE | 2025-04-09 14:56 | XR_ITS ---
EXAMINATION: Ultrasound soft tissue extremity right foot TECHNIQUE: Grayscale sonographic images soft tissue right foot Date and time: April 09, 2025, 1514 hours, comparison January 03, 2025 INDICATIONS: Palpable lump anterior right foot several years FINDINGS: No cystic or solid mass noted IMPRESSION: No cystic or solid mass noted
== END | disposition home or self-care (01) ==
LOC: CDIM 14:35
PROVIDERS: PCP Family Medicine; Referring Provider Nurse Practitioner Family; Visit Provider Nurse Practitioner Family
DX: R22.41 Localized swelling, mass and lump, right lower limb (principal)
CPT/HCPCS: 76882